=== PATIENT | female | born 1995 | race African-American/Black ===

== ENCOUNTER 2022-05-17 20:38 | Emergency (ER) | payer OTHER, SELFPAY ==
[2022-05-17 21:10] VITALS: BP 106/69; PULSE 79; RESP 18; TEMP 32.6; O2SAT 99
--- NOTE | 2022-05-17 22:51 | PC.NURSE ---
called multiple times, not in lobby
== END 2022-05-17 22:51 | disposition left against medical advice (07) ==
DX: R07.81 Pleurodynia (principal)
CPT/HCPCS: 99199